=== PATIENT | female | born 1995 | race Caucasian/White ===

== ENCOUNTER 2016-05-01 03:35 | Emergency (ER) | payer OTHER ==
[~2016-05-01] VITALS: Ht 154.9 cm; Wt 63.8 kg
[~2016-05-01 03:35] MED LIST: FLEXERIL10 MG PO; MICONAZOLE 745 G1 TP; MOTRIN600 MG PO
[2016-05-01 03:53] LABS: ADD MIUA? YES; BILIRUBIN NEGATIVE; BLOOD NEGATIVE; COLOR YELLOW ((YELLOW)); GLUCOSE (STRIP) NEGATIVE; KETONES NEGATIVE; LEUKOCYTES SMALL; NITRITE NEGATIVE; PROTEIN (STRIP) 30; SPECIFIC GRAVITY 1.023 (1.000-1.030); UROBILINOGEN 0.2 MG/DL (0.2-1.0)
[2016-05-01 04:07] LABS: HEMATOCRIT 40.2 % (36.0-46.0); MCH 31.2 PG (29.0-34.0); MCHC 34.1 G/DL (30.0-36.0); MCV 91.6 FL (83-99); MEAN PLAT.VOLUME 8.9 uM^3 (9.5-12.4); PLATELET COUNT 319 K/uL (156-360); RBC DIS.WIDTH-CV 13.4 % (11.8-14.6); RBC DIS.WIDTH-SD 43.9 % (39-53); RED BLOOD COUNT 4.39 M/uL (3.80-5.20); WHITE BLOOD COUNT 9.8 K/uL (4.1-10.2)
[2016-05-01 04:10] LABS: BACTERIA NONE SEEN /HPF; EPITHELIAL CELLS 1+ /HPF; MUCUS TRACE /LPF; RED BLOOD CELLS 0-5 /HPF (0-5); UCUL ADDED? NO
[2016-05-01 04:15] LABS: CHLORIDE 105 mEq/L (99-109); POTASSIUM 4.3 mEq/L (3.7-5.4); SODIUM 140 mEq/L (136-147)
[2016-05-01 04:17] LABS: GLUCOSE 96 mg/dL (70-99)
[2016-05-01 04:18] LABS: ANION GAP 9 MEQ/L (2-14)
[2016-05-01 04:19] LABS: TOTAL BILIRUBIN 0.3 mg/dL (0.0-1.0)
[2016-05-01 04:20] LABS: ALKALINE PHOSPHATASE 58 IU/L (3-129); GFR ESTIMATE (CALCULATED) > 59 mL/min/
[2016-05-01 04:22] LABS: UREA NITROGEN (BUN) 12 mg/dL (9-23)
[2016-05-01 04:29] LABS: QUANTITATIVE HCG < 4.0 MIU/ML
[2016-05-01] MEDS ORDERED: TORADOL10 MG PO (05:56)
[2016-05-01] MEDS ORDERED: ZOFRAN4 MG PO (05:56)
[2016-05-01 06:17] VITALS: BP 115/69
== END 2016-05-01 06:17 | disposition home or self-care (01) ==
LOC: EME 03:35
DX: R10.32 Left lower quadrant pain (principal); N83.201 Unspecified ovarian cyst, right side
CPT/HCPCS: 76856; 80053; 81003; 84702; 85027; 99281; 99284; J1885